=== PATIENT | female | born 1930 | race Caucasian/White ===

== ENCOUNTER 2017-09-07 09:18 | Outpatient (CLI) | payer OTHER | END 2017-09-07 09:40 | disposition home or self-care (01) | LOC: RAD 09:18 | DX: J99 Respiratory disorders in diseases classified elsewhere (principal) ==

== ENCOUNTER 2017-09-26 08:51 | Outpatient (CLI) | payer OTHER | END 2017-09-26 08:52 | disposition home or self-care (01) | LOC: SONOGRAMA 08:51 | DX: N28.1 Cyst of kidney, acquired (principal) ==

== ENCOUNTER 2018-01-02 08:57 | Outpatient (CLI) | payer OTHER | END 2018-01-02 15:50 | disposition home or self-care (01) | LOC: MRI 08:57 | DX: M05.69 Rheumatoid arthritis of multiple sites with involvement of other organs and systems (principal); I13.10 Hypertensive heart and chronic kidney disease without heart failure, with stage 1 through stage 4 chronic kidney disease, or unspecified chronic kidney disease; N18.2 Chronic kidney disease, stage 2 (mild); I42.0 Dilated cardiomyopathy; G30.1 Alzheimer's disease with late onset; G95.29 Other cord compression; G37.4 Subacute necrotizing myelitis of central nervous system; C64.1 Malignant neoplasm of right kidney, except renal pelvis; H40.1132 Primary open-angle glaucoma, bilateral, moderate stage; H35.033 Hypertensive retinopathy, bilateral; Z12.31 Encounter for screening mammogram for malignant neoplasm of breast; Z13.820 Encounter for screening for osteoporosis | CPT/HCPCS: 70551 ==

== ENCOUNTER 2018-01-02 10:47 | Outpatient (CLI) | payer OTHER | END 2018-01-02 11:00 | disposition home or self-care (01) | LOC: NUCLEAR 10:47 | DX: M05.69 Rheumatoid arthritis of multiple sites with involvement of other organs and systems (principal); I13.10 Hypertensive heart and chronic kidney disease without heart failure, with stage 1 through stage 4 chronic kidney disease, or unspecified chronic kidney disease; M18.2 Bilateral post-traumatic osteoarthritis of first carpometacarpal joints; I42.0 Dilated cardiomyopathy; G30.1 Alzheimer's disease with late onset; G95.29 Other cord compression; G37.4 Subacute necrotizing myelitis of central nervous system; C64.1 Malignant neoplasm of right kidney, except renal pelvis; H40.1132 Primary open-angle glaucoma, bilateral, moderate stage; H35.033 Hypertensive retinopathy, bilateral; Z12.31 Encounter for screening mammogram for malignant neoplasm of breast; Z13.820 Encounter for screening for osteoporosis; I67.89 Other cerebrovascular disease; M81.0 Age-related osteoporosis without current pathological fracture | CPT/HCPCS: 70551 ==

== ENCOUNTER 2018-01-28 11:10 | Outpatient (CLI) | payer OTHER | END 2018-01-28 11:19 | disposition home or self-care (01) | LOC: SONOGRAMA 11:10 | DX: N64.89 Other specified disorders of breast (principal); M05.69 Rheumatoid arthritis of multiple sites with involvement of other organs and systems; I13.10 Hypertensive heart and chronic kidney disease without heart failure, with stage 1 through stage 4 chronic kidney disease, or unspecified chronic kidney disease; N18.2 Chronic kidney disease, stage 2 (mild); I42.0 Dilated cardiomyopathy; G30.1 Alzheimer's disease with late onset; G95.29 Other cord compression; G37.4 Subacute necrotizing myelitis of central nervous system; C64.1 Malignant neoplasm of right kidney, except renal pelvis; H40.1132 Primary open-angle glaucoma, bilateral, moderate stage; H35.033 Hypertensive retinopathy, bilateral; M81.0 Age-related osteoporosis without current pathological fracture ==